=== PATIENT | male | born 1965 | race Caucasian/White ===

== ENCOUNTER 2016-09-29 13:30 | Emergency (ER) | payer OTHER ==
[~2016-09-29] VITALS: Ht 185.4 cm; Wt 104.3 kg
[~2016-09-29 13:30] MED LIST: IBUPROFEN 800800 M1 PO; LOPERAMIDE 2 MG2 M1 PO; MOBIC7.5 MG PO; ULTRAM 50MG TAB50 MG PO
[2016-09-29] MEDS ORDERED: NORCO 5-325 TA1 EACH PO ×2 (14:15→14:16)
[2016-09-29 14:45] VITALS: BP 131/87
[2016-10-05] MEDS ORDERED: NORCO 5-325 TA1 EACH PO (08:14)
== END 2016-09-29 14:46 | disposition home or self-care (01) ==
LOC: ER 13:30
DX: M25.561 Pain in right knee (principal); Z96.652 Presence of left artificial knee joint

== ENCOUNTER 2016-10-25 10:38 | Emergency (ER) | payer OTHER | END 2016-10-25 11:50 | disposition left against medical advice (07) | LOC: ER 10:38 | DX: M17.11 Unilateral primary osteoarthritis, right knee (principal); Z96.652 Presence of left artificial knee joint ==

== ENCOUNTER 2017-02-23 07:18 | Emergency (ER) | payer OTHER ==
[~2017-02-23] VITALS: Ht 185.4 cm; Wt 102.1 kg
[~2017-02-23 07:18] MED LIST changes: +MOBIC15 MG PO; +NAPROSYN500 MG PO; +NORCO 5-325 TA1 EACH PO
[2017-02-23 07:20] VITALS: BP 121/81
[2017-02-23] MEDS ORDERED: ZPAK PO (07:52)
== END 2017-02-23 08:18 | disposition home or self-care (01) ==
LOC: ER 07:18
DX: J18.9 Pneumonia, unspecified organism (principal); Z98.890 Other specified postprocedural states

== ENCOUNTER 2017-03-02 17:32 | Emergency (ER) | payer OTHER ==
[~2017-03-02] VITALS: Ht 185.4 cm; Wt 104.3 kg
[~2017-03-02 17:32] MED LIST changes: +ZPAK PO
== END 2017-03-02 18:10 | disposition left against medical advice (07) ==
LOC: ER 17:32
DX: Z53.21 Procedure and treatment not carried out due to patient leaving prior to being seen by health care provider (principal)